=== PATIENT | female | born 1980 | race Caucasian/White ===

== ENCOUNTER 2018-09-30 15:30 | Emergency (ER) | payer MEDICAID ==
[2018-09-30] MEDS ORDERED: HYDROmorphONE/DILAUDID 2 MG/ML INJ IVP ONE (16:01)
[2018-09-30] MEDS ORDERED: ONDANSETRON 4 MG/2 ML VIAL IVP ONE (16:01)
[2018-09-30] MEDS ORDERED: FAMOTIDINE 20 MG/NACL 50 ML IV ONE (16:01)
--- NOTE | 2018-09-30 16:22 | EDPHY ---
General - History Smoking Status: Current every day smoker Time Seen by Provider: 09/30/18 15:55 Narrative: CLINICAL IMPRESSION: Epigastric abdominal pain ASSESSMENT/PLAN: [38-year-old female presents to the emergency department with complaints of epigastric abdominal pain associated with nausea, bilious, nonbloody vomiting over the last 2 days. Pain subjectively radiates to the back but does not involve the flank or lower abdomen. She reports no UTI symptoms. She does have a history of chronic ureterolithiasis, had ureteral stents removed in late July 2018, and had a normal CT scan abdomen and pelvis August 17 of last year. Patient's reported level of pain seems out of proportion for exam findings. She received IV analgesics and almost immediately was requesting something to eat. She has significant benzodiazepine and narcotic prescription refills noted on her PDMP record. On exam today, her abdomen is soft with no focal peritoneal findings, distention or rigidity. She is afebrile. She is significantly hypertensive although has not taken her hypertensive medication for the last 2 days. She reports no headache, chest pain or shortness of breath. EKG read by Dr. Jensen . On reassessment patient is sleeping comfortably. The case discussed with Dr. Jensen who accepted care of the patient at 5:15 p.m.. DIFFERENTIAL DX: Abdominal pain includes but not limited to urinary tract infection, pyelonephritis, infection, ectopic , salpingitis, TOA, ovarian torsion, ovarian cyst, endometriosis, uterine fibroids, acute appendicitis, acute diverticulitis, small-bowel obstruction, constipation ED PROCEDURES: See lab and/or imaging results below ED COURSE: For o'clock p.m.: PDMP records shows patient has received 20 tablets of [place] on the of this month as well as 30 tablets of Xanax 1 mg, Ativan and Xanax filled in July of 2018, multiple different prescriptions for benzos and narcotics filled in the lateral 2017. 4:40 p.m.: Labs reviewed, no leukocytosis, transaminitis, pancreatitis. Mild LARRY with creatinine of 1.1, no other electrolyte imbalance. On reassessment patient is sleeping and requesting something to eat. Awaiting urine. Review of outside ED nose reveals the patient had a CT abdomen pelvis in late August. She had ureteral stents removed in late July. She reported history of scarred ureters. 5:00 p.m.: Patient reassessed, sleeping, states she is feeling much better. Still awaiting urine an EKG. Case signed out to Dr. Jensen at 5:15 p.m.. CHIEF COMPLAINT: Epigastric abdominal pain, nausea and vomiting HPI: 38-year-old female with past medical history of hypertension, recurrent ureterolithiasis, presents to the emergency department today with 2 days of epigastric abdominal pain associated with nausea and nonbloody, bilious vomiting. Patient reports having had pain like this in the past and was told by "someone"that she may have ulcers. She does have a history of kidney stones but reports that she did not present with flank pain. She apparently had a stent placed in late July and was noted to have ureteral scarring. She does not report gross hematuria, dysuria frequency or flank pain today. No chest pain or shortness of breath. No reported cardiac history. She has had a cholecystectomy in the past. She reports she did eat earlier today but has not been unable to eat since that time. No reported fevers or chills. No URI symptoms cough. She has been trying Tylenol for pain. She denies heavy use of NSAIDs. She denies alcohol but admits that she had a shot last night for pain. She does not smoke marijuana. She denies chronic GERD symptoms. She apparently has been seen in the past at [facility] for similar symptoms. She has not taken her hypertensive medication for the last 2 days PAST MEDICAL HISTORY: Hypertension, chronic ureterolithiasis See nurse/triage notes for additional history if applicable Pertinent Past Surgical History: Ureteral stenting, cholecystectomy Family History: No reported family history of cardiac disease Social History: Positive smoker, denies illicit drugs, denies marijuana, denies regular alcohol use REVIEW OF SYSTEMS: All other systems negative Constitutional: No fever, no chills, positive for appetite change. Cardiovascular: No chest pain, no palpitations. Respiratory: No cough, no shortness of breath. Gastrointestinal: Positive for epigastric abdominal pain, positive for bilious, non bloody vomiting, diarrhea. Genitourinary: No hematuria, dysuria, flank pain, pelvic pain Musculoskeletal: No back pain, joint swelling, joint pain, myalgias. Skin: No rashes, color change. Neurological: No headache, dizziness, weakness. PHYSICAL EXAM: General Appearance: Alert, oriented, crying, laying on her belly over the side of the bed, appears uncomfortable but will calm and lay on her back on the bed. At times begins giggling, well hydrated, non-toxic appearing, significantly hypertensive, no hypoxia, smells of cigarette smoke. HEENT: Oropharynx clear is no erythema or exudates, no tonsillar hypertrophy or asymmetry. Dentition without abnormality.] Respiratory: There are no retractions, lungs are clear to auscultation. Cardiac: Regular rate and rhythm, no murmurs or gallops. Gastrointestinal: Abdomen is soft, tender to palpation in the epigastrium, patient pulls my hand away from this area when I attempt to palpate, bowel sounds normal, no masses/hernia, no rigidity, guarding or focal peritoneal findings. No reproducible lower abdominal pain or flank pain Skin: Warm, dry, no rashes, no nodules on palpation. Psychiatric: Patient is oriented X 3, there is no agitation, highly anxious, tearful, seems to behave with pain out of proportion to exam findings. MEDICAL DECISION MAKING: Patient was seen independently. Secondary supervising physician at time of evaluation was Dr. Jensen. Diagnosis: Epigastric abdominal pain. New, requires workup Summary: See Assessment and Plan for summary of ED visit Clinical lab tests: ordered / reviewed. Independent visualization of images, tracing, or specimens: Yes / No. Review / Summarize previous medical records: Reviewed records from outside ED and PDMP record Discussed patient with another provider: Dr. Jensen Patient Progress: Stable. (Domenico Ashley) Medical Decision Making: Patient's UA showed hematuria, likely from kidney stones. Patient has been referred to PCP and urology for follow up. Return precautions discussed. She is comfortable with plan for discharge. (Rolf Jensen) - Objective Vital Signs: Initial Vital Signs Temperature (C) 36.5 C 09/30/18 15:40 Heart Rate 73 09/30/18 15:40 Respiratory Rate 18 09/30/18 15:40 Blood Pressure 263/125 H 09/30/18 15:40 O2 Sat (%) 98 09/30/18 15:40 O2 Delivery Mode Room Air Allergies/Adverse Reactions: morphine Allergy (Verified 09/30/18 15:39) Home Medications: Medication Instructions Recorded Htn Med 09/30/18 Laboratory Results: Laboratory Results 09/30/18 16:15 09/30/18 16:15 09/30/18 09/30/18 09/30/18 16:15 16:15 16:15 WBC 12.52 10^3/uL H 10^3/uL (3.80-9.50) RBC 4.47 10^6/uL 10^6/uL (4.18-5.33) Hgb 11.6 g/dL L g/dL (12.6-16.3) Hct 36.7 % L % (38.0-47.0) MCV 82.1 fL fL (81.5-99.8) MCH 26.0 pg L pg (27.9-34.1) MCHC 31.6 g/dL L g/dL (32.4-36.7) RDW 15.5 % H % (11.5-15.2) Plt Count 421 10^3/uL H 10^3/uL (150-400) MPV 9.4 fL fL (8.7-11.7) Neut % (Auto) 73.1 % % (39.3-74.2) Lymph % (Auto) 17.3 % % (15.0-45.0) Grainger % (Auto) 7.7 % % (4.5-13.0) Eos % (Auto) 1.0 % % (0.6-7.6) Baso % (Auto) 0.6 % % (0.3-1.7) Nucleat RBC Rel Count 0.0 % % (0.0-0.2) Absolute Neuts (auto) 9.16 10^3/uL H 10^3/uL (1.70-6.50) Absolute Lymphs (auto) 2.16 10^3/uL 10^3/uL (1.00-3.00) Absolute Monos (auto) 0.97 10^3/uL H 10^3/uL (0.30-0.80) Absolute Eos (auto) 0.12 10^3/uL 10^3/uL (0.03-0.40) Absolute Basos (auto) 0.07 10^3/uL 10^3/uL (0.02-0.10) Absolute Nucleated RBC 0.00 10^3/uL 10^3/uL (0-0.01) Immature Gran % 0.3 % % (0.0-1.1) Immature Gran # 0.04 10^3/uL 10^3/uL (0.00-0.10) Sodium 140 mEq/L mEq/L (135-145) Potassium 3.7 mEq/L mEq/L (3.5-5.2) Chloride 105 mEq/L mEq/L (97-110) Carbon Dioxide 26 mEq/l mEq/l (22-31) Anion Gap 9 mEq/L mEq/L (6-14) BUN 21 mg/dL mg/dL (7-23) Creatinine 1.1 mg/dL H mg/dL (0.6-1.0) Estimated GFR 55 Glucose 102 mg/dL H mg/dL (70-100) Calcium 10.4 mg/dL mg/dL (8.5-10.4) Total Bilirubin 0.2 mg/dL mg/dL (0.1-1.4) Conjugated Bilirubin 0.2 mg/dL mg/dL (0.0-0.5) Unconjugated Bilirubin 0.0 mg/dL mg/dL (0.0-1.1) AST 20 IU/L IU/L (14-46) ALT 23 IU/L IU/L (9-52) Alkaline Phosphatase 122 IU/L IU/L (38-126) Total Protein 7.1 g/dL g/dL (6.3-8.2) Albumin 4.2 g/dL g/dL (3.5-5.0) Lipase 246 IU/L IU/L (23-300) Beta HCG, Qual NEGATIVE Urine Color Urine Appearance Urine pH Ur Specific [place] Urine Protein Urine Ketones Urine Blood Urine Nitrate Urine Bilirubin Urine Urobilinogen Ur Leukocyte Esterase Urine RBC Urine WBC Ur Epithelial Cells Urine Mucus Urine Glucose 09/30/18 15:38 WBC RBC Hgb Hct MCV MCH MCHC RDW Plt Count MPV Neut % (Auto) Lymph % (Auto) Grainger % (Auto) Eos % (Auto) Baso % (Auto) Nucleat RBC Rel Count Absolute Neuts (auto) Absolute Lymphs (auto) Absolute Monos (auto) Absolute Eos (auto) Absolute Basos (auto) Absolute Nucleated RBC Immature Gran % Immature Gran # Sodium Potassium Chloride Carbon Dioxide Anion Gap BUN Creatinine Estimated GFR Glucose Calcium Total Bilirubin Conjugated Bilirubin Unconjugated Bilirubin AST ALT Alkaline Phosphatase Total Protein Albumin Lipase Beta HCG, Qual Urine Color YELLOW Urine Appearance CLEAR Urine pH 5.0 (5.0-7.5) Ur Specific [place] 1.016 (1.002-1.030) Urine Protein NEGATIVE (NEGATIVE) Urine Ketones NEGATIVE (NEGATIVE) Urine Blood 3+ H (NEGATIVE) Urine Nitrate NEGATIVE (NEGATIVE) Urine Bilirubin NEGATIVE (NEGATIVE) Urine Urobilinogen NEGATIVE EU EU (0.2-1.0) Ur Leukocyte Esterase TRACE H (NEGATIVE) Urine RBC 50-182 /hpf H /hpf (0-3) Urine WBC 5-10 /hpf H /hpf (0-3) Ur Epithelial Cells TRACE /lpf /lpf (NONE-1+) Urine Mucus TRACE /lpf /lpf (NONE-1+) Urine Glucose NEGATIVE (NEGATIVE) Medications Given: Discontinued Medications Hydromorphone HCl (Dilaudid) 1 mg IVP EDNOW ONE Stop: 09/30/18 16:02 Last Admin: 09/30/18 16:13 Dose: 1 mg Famotidine/Sodium Chloride (Pepcid 20 Mg (Premix)) 50 mls @ 200 mls/hr IV EDNOW ONE Stop: 09/30/18 16:15 Last Admin: 09/30/18 16:13 Dose: 50 mls Ondansetron HCl (Zofran) 4 mg IVP EDNOW ONE Stop: 09/30/18 16:02 Last Admin: 09/30/18 16:13 Dose: 4 mg Departure - Departure Disposition: Home, Routine, Self-Care Clinical Impression: Hematuria Qualifiers: Hematuria type: unspecified type Qualified Code(s): R31.9 - Hematuria, unspecified Condition: Good Instructions: Kidney Stones (ED), Hematuria (ED) Additional Instructions: Be sure to take your blood pressure medications as prescribed. DISCHARGE INSTRUCTIONS FROM YOUR DOCTOR Thank you for visiting our emergency department today. Please keep in mind that discharge from the emergency department does not mean that there is nothing wrong - it simply means that we have not identified an emergency condition that requires further evaluation or treatment in the hospital. You should always plan to follow up with primary care for re-evaluation of your condition in the next 2-3 days. If you have been referred to a specialist, please call as soon as possible (today or tomorrow) to schedule your follow up appointment at the appropriate time. EMERGENCY DEPARTMENT EVALUATION INCLUDED EKG, LABORATORY AND URINE STUDIES. YOU HAVE NO EVIDENCE OF ABNORMAL LIVER ENZYMES, PANCREATITIS, ELEVATED INFECTION FIGHTING COUNT OR ELECTROLYTE IMBALANCE. YOU DO APPEAR SLIGHTLY DEHYDRATED. URINE STUDIES SHOWED SOME BLOOD IN YOUR URINE THAT COULD INDICATE KIDNEY STONES. PLEASE MAKE A FOLLOW-UP APPOINTMENT WITH PRIMARY CARE AND UROLOGY. RETURN TO THE EMERGENCY DEPARTMENT FOR WORSENING PAIN, VOMITING, FEVERS, CHEST PAIN OR SHORTNESS OF BREATH, OR ANY OTHER CONCERNS. People present with illnesses and injuries in different ways, and it is always possible that we have missed something. You may always return for re-evaluation if symptoms worsen or if they are not improving or if you develop new/different symptoms. Again, thank you for choosing our emergency department. We hope that you feel better. Referrals: [facility],. [Clinic] - As per Instructions Maximiliano John MD [Medical Doctor] - As per Instructions
[2018-09-30 16:27] LABS: PLATELET COUNT 421 10^3/uL (150-400)
[2018-09-30 18:14] VITALS: BP 132/82
--- NOTE | 2018-10-02 16:05 | CPEKG ---
Test Reason : OPEN Blood Pressure : / mmHG Vent. Rate : 062 BPM Atrial Rate : 062 BPM P-R Int : 163 ms QRS Dur : 114 ms QT Int : 437 ms P-R-T Axes : 062 036 050 degrees QTc Int : 444 ms Sinus rhythm Anterior infarct, old Confirmed by Mely Gonzalez ([id number]) on 10/02/2018 4:05:05 PM Referred By: Confirmed By:Mley Gonzalez
== END 2018-09-30 18:13 | disposition home or self-care (01) ==
DX: R10.13 Epigastric pain (principal); R31.9 Hematuria, unspecified; I10 Essential (primary) hypertension; Z87.442 Personal history of urinary calculi
CPT/HCPCS: 96365; J1170; J2405